=== PATIENT | female | born 1970 | race Caucasian/White ===

== ENCOUNTER 2017-06-28 16:01 | Emergency (ER) | payer SELFPAY ==
[~2017-06-28] VITALS: Ht 165.1 cm; Wt 59.0 kg
[~2017-06-28 16:01] MED LIST: ALBUTEROL0.09 MG/A2 IH; ALBUTEROL0.09 MG/A2 INH; CIPROFLOXACIN500 MG PO; DARVOCET N 1001 TAB PO; DOXYCYCLINE MO100 MG PO; ESTRADIOL1 MG PO; MEDROL DOSEPAK4 MG PO; MOTRIN800 MG PO; NORCO 325 MG-101 TAB PO; OMNICEF300 MG PO; OYSCO 500500 M1 PO; PREDNICOT20 MG PO; PREDNISONE10 MG PO; PREDNISONE20 MG PO; SKELAXIN800 MG PO; TYLENOL W/CODEI1 TA2 PO; TYLENOL W/CODEI1 TA4 PO; VICODIN 5/500 505 MG PO; ZITHROMAX Z PA250 MG PO; ZITHROMAX500 MG PO
[2017-06-28] MEDS ORDERED: ZITHROMAX250 MG PO (17:01)
[2017-06-28] MEDS ORDERED: PROAIR HFA8.5 GM INH (17:01)
[2017-06-28] MEDS ORDERED: PREDNISONE10 MG PO (17:01)
== END 2017-06-28 17:09 | disposition home or self-care (01) ==
LOC: ED 16:01
DX: J40 Bronchitis, not specified as acute or chronic (principal); F17.200 Nicotine dependence, unspecified, uncomplicated; Z98.51 Tubal ligation status; Z79.899 Other long term (current) drug therapy

== ENCOUNTER 2017-07-06 15:56 | Emergency (ER) | payer SELFPAY ==
[~2017-07-06] VITALS: Wt 56.7 kg
[~2017-07-06 15:56] MED LIST changes: +PROAIR HFA8.5 GM INH; +ZITHROMAX250 MG PO
[2017-07-06] MEDS ORDERED: NORCO 5-325 TA1 EACH PO ×2 (17:10→17:30)
== END 2017-07-06 17:11 | disposition home or self-care (01) ==
LOC: ED 15:56
DX: M94.0 Chondrocostal junction syndrome [Tietze] (principal); R07.81 Pleurodynia; R00.2 Palpitations; F17.200 Nicotine dependence, unspecified, uncomplicated; Z98.51 Tubal ligation status; Z79.899 Other long term (current) drug therapy

== ENCOUNTER 2017-12-08 11:22 | Emergency (ER) | payer SELFPAY ==
[~2017-12-08] VITALS: Ht 165.1 cm; Wt 61.2 kg
[~2017-12-08 11:22] MED LIST changes: +NORCO 5-325 TA1 EACH PO
[2017-12-08] MEDS ORDERED: FLONASE ALLERG9.9 ML NAS (11:37)
[2017-12-08] MEDS ORDERED: PREDNISONE10 MG PO (11:37)
[2017-12-08] MEDS ORDERED: ROBITUSSIN DM 105 ML PO (11:37)
[2017-12-08] MEDS ORDERED: CLARITIN10 MG PO (11:37)
== END 2017-12-08 12:31 | disposition home or self-care (01) ==
LOC: ED 11:22
DX: B34.9 Viral infection, unspecified (principal); R03.0 Elevated blood-pressure reading, without diagnosis of hypertension; Z87.891 Personal history of nicotine dependence; Z79.899 Other long term (current) drug therapy

== ENCOUNTER 2018-05-31 13:36 | Emergency (ER) | payer SELFPAY ==
[~2018-05-31] VITALS: Ht 165.1 cm; Wt 56.7 kg
[~2018-05-31 13:36] MED LIST changes: +CLARITIN10 MG PO; +FLONASE ALLERG9.9 ML NAS; +ROBITUSSIN DM 105 ML PO
[2018-05-31 14:43] LABS: BASO # 0.1 10*3/uL (0.0-0.1); BASO % 0.9 % (0.0-1.0); EOS # 0.1 10*3/uL (0.0-0.4); EOS % 2.3 % (1.0-4.0); HEMATOCRIT 38.1 % (37.0-47.0); LYMPH # 1.7 10*3/uL (1.3-4.4); LYMPH % 28.9 % (27.0-41.0); MEAN CELL VOLUME 85.6 fl (81.0-99.0); MEAN CORPUSCULAR HGB 29.2 pg (27.0-31.0); MEAN CORPUSCULAR HGB CONC 34.1 g/dl (33.0-37.0); MEAN PLATELET VOLUME 10.2 fl (9.6-12.3); MONO # 0.3 10*3/uL (0.1-1.0); MONO % 5.9 % (3.0-9.0); NEUT # 3.6 10*3/uL (2.3-7.9); NEUT % 61.8 % (47.0-73.0); PLATELET COUNT AUTOMATED 218 10*3/uL (130-400); RED BLOOD COUNT 4.45 10*6/uL (4.10-5.10); RED CELL DISTRI WIDTH 13.2 % (0-14.5); WHITE BLOOD COUNT 5.8 10*3/uL (4.8-10.8)
[2018-05-31 14:49] LABS: BILIRUBIN NEGATIVE (NEGATIVE); BLOOD TRACE-LYSED (NEGATIVE); CLARITY CLEAR (CLEAR); COLOR YELLOW (YELLOW); GLUCOSE NEGATIVE (NEGATIVE); KETONE NEGATIVE (NEGATIVE); LEUKO ESTERASE NEGATIVE (NEGATIVE); NITRITE NEGATIVE (NEGATIVE); SPECIFIC GRAVITY <= 1.005 (1.005-1.030); UROBILINOGEN 0.2 E.U./dl (0.2-1.0)
[2018-05-31 14:58] LABS: BACTERIA 1+; WBC 0-2 wbc/hpf (0-5)
[2018-05-31 14:59] LABS: YEAST TRACE
[2018-05-31 15:06] LABS: ALBUMIN 3.8 gm/dl (3.1-4.5); ALKALINE PHOSPHATASE 72 U/L (45-117); BUN 9 mg/dl (7-24); CHLORIDE 105 mmol/L (98-107); CREATININE 0.75 mg/dL (0.55-1.02); LIPASE 157 U/L (73-393); POTASSIUM 4.2 mmol/L (3.5-5.1); SGOT/AST 16 IU/L (3-35); SGPT/ALT 18 U/L (12-78); SODIUM 140 mmol/L (136-145); TOTAL PROTEIN 7.2 gm/dL (6.4-8.2)
[2018-05-31] MEDS ORDERED: OMEPRAZOLE MAGN20 MG PO (15:33)
[2018-05-31] MEDS ORDERED: RANITIDINE 7575 MG PO (15:33)
== END 2018-05-31 15:50 | disposition home or self-care (01) ==
LOC: ED 13:36
PROVIDERS: Physician Assistant
DX: R10.13 Epigastric pain (principal); R10.12 Left upper quadrant pain; Z98.51 Tubal ligation status; Z79.899 Other long term (current) drug therapy

== ENCOUNTER 2024-10-01 15:06 | Emergency (ER) | payer BC ==
[~2024-10-01] VITALS: Ht 165.1 cm; Wt 62.3 kg
[~2024-10-01 15:06] MED LIST changes: +OMEPRAZOLE MAGN20 MG PO; +RANITIDINE 7575 MG PO
[2024-10-01] MEDS ORDERED: MG-AL HYDROXIDE/SIMETICONE 30 ML UDC PO ONE (17:30)
[2024-10-01] MEDS ORDERED: Lidocaine Hydrochloride 15 ML UDC PO ONE (17:30)
[2024-10-01 17:45] LABS: BASO # 0.1 10*3/uL (0.0-0.1); EOS # 0.1 10*3/uL (0.0-0.4); EOS % 1.7 % (1.0-4.0); MEAN CELL VOLUME 87.5 fl (81.0-99.0); MEAN CORPUSCULAR HGB 28.3 pg (27.0-31.0); MEAN CORPUSCULAR HGB CONC 32.4 g/dl (33.0-37.0); MEAN PLATELET VOLUME 10.7 fl (9.6-12.3); MONO # 0.6 10*3/uL (0.1-1.0); MONO % 9.8 % (3.0-9.0); NEUT # 3.4 10*3/uL (2.3-7.9); NEUT % 57.4 % (47.0-73.0); PLATELET COUNT AUTOMATED 208 10*3/uL (130-400); RED BLOOD COUNT 5.26 10*6/uL (4.10-5.10); RED CELL DISTRI WIDTH 12.6 % (0-14.5); WHITE BLOOD COUNT 5.9 10*3/uL (4.8-10.8)
[2024-10-01 18:08] LABS: ALKALINE PHOSPHATASE 74 U/L (46-116); BUN 7 mg/dl (9-23); CHLORIDE 102 mmol/L (98-107); LIPASE 39 U/L (12-53); POTASSIUM 3.7 mmol/L (3.4-5.1); SGPT/ALT 8 U/L (5-49); TOTAL PROTEIN 7.7 gm/dL (6.0-8.0)
[2024-10-01] MEDS ORDERED: OMEPRAZOLE40 MG PO (18:57)
== END 2024-10-01 19:15 | disposition home or self-care (01) ==
LOC: ED 15:06
PROVIDERS: Emergency Medicine
DX: K29.70 Gastritis, unspecified, without bleeding (principal); Z98.890 Other specified postprocedural states; R11.0 Nausea